=== PATIENT | male | born 1960 ===

== ENCOUNTER → 2023-03-25 23:59 | Outpatient (BNV) | payer MEDICARE, BC, SELFPAY | PROVIDERS: Visit Provider Internal Medicine Hypertension Specialist | DX: N18.5 Chronic kidney disease, stage 5 (principal) | CPT/HCPCS: 90960 ==

== ENCOUNTER → 2023-04-24 | Outpatient (BNV) | payer MEDICARE, BC, SELFPAY | PROVIDERS: Visit Provider Internal Medicine Hypertension Specialist | DX: N18.6 End stage renal disease (principal) | CPT/HCPCS: 90962 ==

== ENCOUNTER → 2023-05-25 | Outpatient (BNV) | payer MEDICARE, BC, SELFPAY | PROVIDERS: Visit Provider Internal Medicine Hypertension Specialist | DX: N18.6 End stage renal disease (principal) | CPT/HCPCS: 90960 ==

== ENCOUNTER → 2023-06-25 | Outpatient (BNV) | payer MEDICARE, BC, SELFPAY | PROVIDERS: Visit Provider Internal Medicine Hypertension Specialist | DX: N18.6 End stage renal disease (principal) | CPT/HCPCS: 90961 ==

== ENCOUNTER → 2023-07-24 | Outpatient (BNV) | payer MEDICARE, BC, SELFPAY | PROVIDERS: Visit Provider Internal Medicine Hypertension Specialist | DX: N18.6 End stage renal disease (principal) | CPT/HCPCS: 90960 ==

== ENCOUNTER → 2023-08-24 | Outpatient (BNV) | payer MEDICARE, BC, SELFPAY | PROVIDERS: Visit Provider Internal Medicine Hypertension Specialist | DX: N18.6 End stage renal disease (principal) | CPT/HCPCS: 90962 ==

== ENCOUNTER → 2023-09-23 | Outpatient (BNV) | payer MEDICARE, BC, SELFPAY | PROVIDERS: Visit Provider Internal Medicine Hypertension Specialist | DX: N18.6 End stage renal disease (principal) | CPT/HCPCS: 90960 ==

== ENCOUNTER → 2023-10-24 | Outpatient (BNV) | payer MEDICARE, BC, SELFPAY | PROVIDERS: Visit Provider Internal Medicine Hypertension Specialist | DX: N18.6 End stage renal disease (principal) | CPT/HCPCS: 90960 ==

== ENCOUNTER → 2023-11-23 | Outpatient (BNV) | payer MEDICARE, BC, SELFPAY | PROVIDERS: Visit Provider Internal Medicine Hypertension Specialist | DX: N18.6 End stage renal disease (principal) | CPT/HCPCS: 90960 ==

== ENCOUNTER → 2023-12-24 | Outpatient (BNV) | payer MEDICARE, BC, SELFPAY | PROVIDERS: Visit Provider Internal Medicine Hypertension Specialist | DX: N18.6 End stage renal disease (principal) | CPT/HCPCS: 90961 ==

== ENCOUNTER → 2024-01-24 | Outpatient (BNV) | payer MEDICARE, BC, SELFPAY | PROVIDERS: Visit Provider Internal Medicine Hypertension Specialist | DX: N18.6 End stage renal disease (principal) | CPT/HCPCS: 90961 ==

== ENCOUNTER → 2024-02-23 | Outpatient (BNV) | payer MEDICARE, BC, SELFPAY | PROVIDERS: Visit Provider Internal Medicine Hypertension Specialist | DX: N18.6 End stage renal disease (principal) | CPT/HCPCS: 90961 ==

== ENCOUNTER → 2024-03-25 | Outpatient (BNV) | payer MEDICARE, BC, SELFPAY | PROVIDERS: Visit Provider Internal Medicine Hypertension Specialist | DX: N18.6 End stage renal disease (principal) | CPT/HCPCS: 90961 ==

== ENCOUNTER → 2024-04-24 | Outpatient (BNV) | payer MEDICARE, BC, SELFPAY | PROVIDERS: Visit Provider Internal Medicine Hypertension Specialist | DX: N18.6 End stage renal disease (principal) | CPT/HCPCS: 90960 ==

== ENCOUNTER → 2024-05-25 | Outpatient (BNV) | payer MEDICARE, BC, SELFPAY | PROVIDERS: Visit Provider Internal Medicine Hypertension Specialist | DX: N18.6 End stage renal disease (principal) | CPT/HCPCS: 90960 ==

== ENCOUNTER → 2024-06-25 | Outpatient (BNV) | payer MEDICARE, BC, SELFPAY | PROVIDERS: Visit Provider Internal Medicine Hypertension Specialist | DX: N18.6 End stage renal disease (principal) | CPT/HCPCS: 90961 ==

== ENCOUNTER → 2024-07-23 | Outpatient (BNV) | payer MEDICARE, BC, SELFPAY | PROVIDERS: Visit Provider Internal Medicine Hypertension Specialist | DX: N18.6 End stage renal disease (principal) | CPT/HCPCS: 90961 ==

== ENCOUNTER → 2024-08-23 | Outpatient (BNV) | payer MEDICARE, BC, SELFPAY | PROVIDERS: Visit Provider Internal Medicine Hypertension Specialist | DX: N18.6 End stage renal disease (principal) | CPT/HCPCS: 90961 ==

== ENCOUNTER → 2024-09-22 | Outpatient (BNV) | payer MEDICARE, BC, SELFPAY | PROVIDERS: Visit Provider Internal Medicine Hypertension Specialist | DX: N18.6 End stage renal disease (principal) | CPT/HCPCS: 90961 ==

== ENCOUNTER → 2024-12-23 23:59 | Outpatient (BNV) | payer MEDICARE, BC, SELFPAY | PROVIDERS: Visit Provider Internal Medicine Hypertension Specialist | DX: N18.6 End stage renal disease (principal) | CPT/HCPCS: 90961 ==

== ENCOUNTER → 2025-01-23 23:59 | Outpatient (BNV) | payer MEDICARE, BC, SELFPAY | PROVIDERS: Visit Provider Internal Medicine Hypertension Specialist | DX: N18.6 End stage renal disease (principal) | CPT/HCPCS: 90962 ==

== ENCOUNTER → 2025-02-22 23:59 | Outpatient (BNV) | payer MEDICARE, BC, SELFPAY | PROVIDERS: Visit Provider Internal Medicine Hypertension Specialist | DX: N18.6 End stage renal disease (principal) | CPT/HCPCS: 90961 ==